=== PATIENT | female | born 1965 ===

== ENCOUNTER 2024-04-09 09:23 | Outpatient (AMB) | payer MEDICARE, MEDICAID, SELFPAY ==
--- NOTE | 2024-04-09 09:35 | A.OFFVIS_ITS ---
Vital Signs 04/09/24 09:37 Height 5 ft 4 in Weight 243 lb BMI 41.7 BP 184/86 H Blood Pressure Location Lt brachial Position Sitting Respiration 16 Pulse 81 Pulse Source Pulse Oximeter Pulse Oximetry (%) 96 Oxygen Delivery Method Room Air Intake Visit Reasons: Disorder of Sacrum Intake Note: Pt's BP elevated -she states it always is, refuses BP medications Allergies cortisone Adverse Reaction (Intermediate, Verified 04/09/24 09:40) flushing, hives Medication List - Last Reconciled 04/09/24 by Beth Everett LPN baclofen 10 mg PO QID oxycodone 5 mg PO TID semaglutide (Ozempic) 1 mg subcut QWEEK HPI HPI Disorder of Sacrum: Details: 58-year-old female who presents today to the office for evaluation of sacrum. She reports low back and left leg pain. The pain has been progressively worsening. She reports her pain at 6-7/10 in intensity that escalate to an 8- 9/10 in intensity at night. She reports hypersensitivity sensations around her left knee that radiates down to the leg and occasionally radiates upward to the hips. She is still waiting to start the PT. Her first PT session is on 04/26/2024. She uses heat compression for pain relief. She received diagnostic bilateral anesthetic injections on February 16, 2024 that provided noticeable improvement in her pain which allowed her to perform ADLs with the duration of the anesthetic. She has done physical therapy. She is allergic to cortisone. [facility] Medical History (Updated 05/07/24 @ 13:17 by Hernandez Breen MD) Obesities, morbid Review of Systems Const All systems reviewed & are unremarkable except as noted in HPI and below Physical Exam Vital Signs: Last Vital Signs Pulse 81 04/09/24 09:37 Resp 16 04/09/24 09:37 BP 184/86 H 04/09/24 09:37 Pulse Ox 96 04/09/24 09:37 Oxygen Delivery Method Room Air 04/09/24 09:37 BMI result Body Mass Index 41.7 General: Appears afebrile. Alert and oriented. Mood and affect appropriate. Follows and participates in conversation appropriately. Respiratory effort is unlabored. Able to transition from sit to stand unassisted. Ambulates with bilaterally normal heel strike and toe off. Results Reviewed Results Reviewed: No imaging is available for review. 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 The patient will bring the hard copy of the x-ray result for us to review on next visit. I also recommended trying turmeric supplements, CBD gummies, and Tylenol 500 mg for pain management at home. Discussed permanent peripheral nerve stimulator as a possible treatment option. We will proceed with repeat diagnostic injections first. I will schedule her for a left diagnostic middle cluneal nerve block. Discussed the risks and benefits of the procedure with the patient in detail. All questions were answered. The patient is on board with the plan. A device brochure was provided to the patient today. Justification for interventional therapy: ? Patient with average pain > 6/10 ? Patient has exhausted conservative therapy ? Actively performing physical therapy. . Patient has a good understanding of their pain condition and has appropriate mental and social support Scribed for Dr. Breen by Diego Ibrahim, curator medical museum, on 04/09/2024. I, Dr. Breen, have personally reviewed and agree with the information entered by the scribe. Coding Level of Care Code New Pt Level 4 (24223) Diagnoses Cluneal neuropathy G58.8 Sacroiliac dysfunction M53.3
[2024-04-09 09:37] VITALS: BP 184/86; PULSE 81; RESP 16; O2SAT 96; BMI 41.7
== END 2024-04-09 10:13 | disposition home or self-care (01) ==
PROVIDERS: PCP Registered Nurse Oncology; Visit Provider Internal Medicine
DX: G58.8 Other specified mononeuropathies (principal); M53.3 Sacrococcygeal disorders, not elsewhere classified
CPT/HCPCS: 99204

== ENCOUNTER → 2024-04-09 09:23 | Outpatient (BNVA) | payer MEDICARE, MEDICAID, SELFPAY | PROVIDERS: PCP Registered Nurse Oncology; Visit Provider Internal Medicine | DX: M53.3 Sacrococcygeal disorders, not elsewhere classified (principal); G58.8 Other specified mononeuropathies | CPT/HCPCS: 99202 ==

== ENCOUNTER 2024-04-19 08:49 | Outpatient (REF) | payer MEDICARE, MEDICAID, SELFPAY | END 2024-04-19 08:50 | disposition home or self-care (01) | LOC: CF 08:49 | PROVIDERS: Visit Provider Internal Medicine | DX: G58.8 Other specified mononeuropathies (principal) | CPT/HCPCS: 64450; J2003; J2795; Q9967 ==

== ENCOUNTER 2024-04-19 09:50 | Outpatient (AMB) | payer MEDICARE, MEDICAID, SELFPAY ==
[2024-04-19 10:08] VITALS: BP 159/83; PULSE 90; RESP 18; O2SAT 97
--- NOTE | 2024-04-19 10:39 | MHC.OFFVIS ---
Vital Signs 04/19/24 10:08 04/19/24 10:40 BP 159/83 H 170/75 H Blood Pressure Location Lt brachial Lt brachial Position Sitting Sitting Respiration 18 19 Pulse 90 88 Pulse Source Pulse Oximeter Pulse Oximeter Pulse Oximetry (%) 97 98 Oxygen Delivery Method Room Air Room Air Comment Pre-op Post-op Intake Visit Reasons: Left Dx medial cluneal NB Allergies cortisone Adverse Reaction (Intermediate, Verified 04/09/24 09:40) flushing, hives HPI HPI Left Dx medial cluneal NB: Details: Patient presents for scheduled procedure. Denies any recent cough, cold, infection, fever or other significant changes in medical history since last office visit. Office Procedures Nerve Block Details: Left Middle Cluneal Nerves, fluoroscopic guided nerve block After obtaining written consent, pre-procedure blood pressure and heart rate were stable and recorded in the nursing record. The patient was placed prone on the fluoroscopy table. The area overlying the peripheral nerves was widely prepped with chloraprep, allowed to dry and sterilely draped. Using fluoroscopy, the appropriate landmarks were identified. The skin overlying the target was anesthetized with 0.5% lidocaine. A 22 gauge 3.5 inch spinal needle was advanced under fluoroscopic guidance to the appropriate landmarks at three sites along the posterior sacral foramina. Verification was done using lateral and AP views. Aspiration was negative for heme and local contrast spread was confirmed. 1 cc of ropivacaine 0.5% was injected around each targeted area. The needles were removed, skin cleansed and a sterile bandage was applied. The patient tolerated the procedure well and no complications were encountered. Following the procedure the patient's vital signs were stable. The patient was discharged home in good condition with post-procedural instructions. Time Out: Immediately prior to the procedure, the following was verbally confirmed that there is a signed consent form and that the correct patient, planned procedure, site and side are consistent with documentation and that necessary equipment and/or blood products are available prior to the start of the case. 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 Patient tolerated procedure well and was discharged home in stable condition with discharge instructions. All questions were answered. We will follow-up via telephone or in clinic to assess response to therapy. A follow-up appointment was made during today's visit. Orders: Orders FL guidance in treatment room Today G58.8 - Other specified mononeuropathies Coding Level of Care Code Procedure Only Diagnoses Cluneal neuropathy G58.8
[2024-04-19 10:40] VITALS: BP 170/75; PULSE 88; RESP 19; O2SAT 98
== END 2024-04-19 10:41 | disposition home or self-care (01) ==
LOC: HO.PMCPRC 09:50
PROVIDERS: PCP Registered Nurse Oncology; Visit Provider Internal Medicine
DX: G58.8 Other specified mononeuropathies (principal)
CPT/HCPCS: 64450; 77002